=== PATIENT | female | born 1975 | race Caucasian/White ===

== ENCOUNTER 2019-02-16 12:42 | Outpatient (CLI) | payer OTHER ==
[2019-02-16] MEDS ORDERED: GADOBUTROL 10 MMOL/10 ML VIAL ONE (13:24)
[2019-02-16] MEDS ORDERED: GADOBUTROL 10 MMOL/10 ML VIAL IVP ONE (14:22)
--- NOTE | 2019-02-18 16:16 | MRI Report ---
Reason: HISTORY OF CERVICAL CANCER, PELVIC PAIN AND NODULE Procedure Date: 02/16/2019 Accession Number: [id number] / [id number] Procedure: MRI - Pelvis W/WO CPT Code: Final Report FULL RESULT: EXAM: MR PELVIS WITH AND WITHOUT CONTRAST (MR FEMALE PELVIS) EXAM DATE: 02/16/2019 02:42 PM. CLINICAL HISTORY: HISTORY OF CERVICAL CANCER, PELVIC PAIN AND NODULE. COMPARISON: None. TECHNIQUE: Multiplanar breath-hold T1, T2 and DWI sequences obtained through the pelvis on an MR scanner. Images obtained before and after administration of 9 mL Gadavist intravenous contrast. FINDINGS: Reproductive Organs: Uterus: Hysterectomy. Ovaries: Not identified Bowel: The visualized portions of the small bowel, colon, and rectum appear normal. Bladder: The urinary bladder appears normal. Other: Trace fluid in the pelvic cavity. T2 hyperintense, T1 hypointense, nonenhancing cyst in the posterior depth left hemipelvis, series 301, axial image 18, measures 2.7 cm, without mural nodule or septation or enhancing solid component, located adjacent to the left vaginal cuff. Artifacts: Susceptibility artifact along the vaginal cuff, consistent with postsurgical change. IMPRESSION: 1. Hysterectomy and possible oophorectomies. 2. Small simple appearing cyst adjacent to the left vaginal cuff. Nonspecific cyst, could be peritoneal inclusion or ovarian cyst if patient has ovaries. No solid mass seen RADIA
== END 2019-02-16 12:43 | disposition home or self-care (01) ==
LOC: DI 12:42
PROVIDERS: ATTEND Obstetrics & Gynecology
DX: R10.2 Pelvic and perineal pain (principal); Z85.41 Personal history of malignant neoplasm of cervix uteri; Z90.710 Acquired absence of both cervix and uterus; Z01.419 Encounter for gynecological examination (general) (routine) without abnormal findings
CPT/HCPCS: 72197; A9585

== ENCOUNTER 2019-03-06 07:08 | Outpatient (CLI) | payer OTHER ==
[2019-03-06 12:34] LABS: ALBUMIN 3.9 g/dL (3.2-5.5); ALBUMIN/GLOBULIN RATIO 1.3 (1.0-2.2); ALKALINE PHOSPHATASE 62 IU/L (42-121); ALT ALANINE AMINOTRANSFERASE 17 IU/L (10-60); AST ASPARTATE AMINOTRANSFERASE 20 IU/L (10-42); BILIRUBIN,TOTAL 0.7 mg/dL (0.2-1.0); BUN - BLOOD UREA NITROGEN 14 mg/dL (6-20); CARBON DIOXIDE - CO2 29 mmol/L (21-32); CHLORIDE 104 mmol/L (101-111); CHOL/HDL RATIO 2.6 (<4.4); CHOLESTEROL 208 mg/dL; CREATININE 0.8 mg/dL (0.4-1.0); GFR - MDRD 79 (>89); GLUCOSE 85 mg/dL (70-100); HDL CHOLESTEROL 79 mg/dL; LDL CHOLESTEROL,CALCULATED 110 mg/dL; LDL/HDL RATIO 1.4 (<4.4); SODIUM 140 mmol/L (135-145); TOTAL PROTEIN 6.9 g/dL (6.7-8.2); VLDL CHOLESTEROL 19 mg/dL
[2019-03-06 13:54] LABS: HB2 TOTAL 12.6 g/dL; HEMOGLOBIN A1C 0.44 g/dL; HEMOGLOBIN A1C % 5.3 % (4.6-6.2)
== END 2019-03-06 23:59 | disposition home or self-care (01) ==
LOC: LAB.N 07:08
PROVIDERS: ATTEND Obstetrics & Gynecology
DX: Z01.419 Encounter for gynecological examination (general) (routine) without abnormal findings (principal)
CPT/HCPCS: 36415; 80053; 80061; 83036; 83721

== ENCOUNTER 2019-03-11 15:45 | Outpatient (CLI) | payer OTHER ==
--- NOTE | 2019-03-12 09:26 | Mammography Report ---
Reason: ROUTINE MAMMO Procedure Date: 03/11/2019 Accession Number: [id number] / [id number] Procedure: [facility] - Screening Mammo w/Devaughn CPT Code: Final Report FULL RESULT: EXAM: Screening Mammo w/Devaughn DATE: 03/11/2019 4:09 PM CLINICAL HISTORY: Screening encounter. Baseline exam. TECHNIQUE: (B) - Bilateral CC and MLO views were obtained. COMPARISON: None PARENCHYMAL PATTERN: (A) - The breast(s) demonstrate(s) scattered fibroglandular densities. FINDINGS: There are coarse typically benign calcifications. There are no suspicious masses, calcifications, or areas of distortion. IMPRESSION: Benign findings. BI-RADS category 2. RECOMMENDATION: (ANNUAL) - Recommend routine annual screening mammography. BI-RADS CATEGORY: (2) - Benign Findings. STANDARD QUALIFYING STATEMENTS: 1. This examination was not reviewed with the aid of Computer-Aided Detection (CAD). 2. A negative or benign imaging report should not preclude biopsy if clinically suspicious findings are present. 3. Dense breasts may obscure an underlying neoplasm. 4. This examination was reviewed with the aid of 3D breast imaging (tomosynthesis).
== END 2019-03-11 15:46 | disposition home or self-care (01) ==
LOC: DI 15:45
PROVIDERS: ATTEND Obstetrics & Gynecology
DX: Z12.31 Encounter for screening mammogram for malignant neoplasm of breast (principal)
CPT/HCPCS: 77063; 77067